=== PATIENT | male | born 1955 | race African-American/Black ===

== ENCOUNTER 2020-01-13 07:21 | Emergency (ER) | payer SELFPAY ==
[~2020-01-13] VITALS: Ht 175.3 cm; Wt 82.0 kg
[2020-01-13] MEDS ORDERED: ACETAMINOPHEN 325MG TABLET PO STA (07:35)
[2020-01-13] MEDS ORDERED: HYDRALAZINE 20MG/ML VIAL IV ONE (08:15)
[2020-01-13 08:45] LABS: BASOPHILS % 0.2 % (0.0-2.0); EOSINOPHILS % 3.5 % (0.0-5.0); HEMATOCRIT. 43.3 % (42.0-52.0); HEMOGLOBIN. 14.7 g/dL (14.0-18.0); MEAN CORPUSCULAR HEMOGLOBIN 30.3 pg (28.0-32.0); MEAN CORPUSCULAR VOLUME 89.2 fL (80.0-94.0); MEAN PLATELET VOLUME 10.1 fl (7.4-10.4); MONOCYTES % 9.8 % (2.0-8.0); NEUTROPHILS % 63.5 % (40.0-76.0); PLATELET 168 x1000/uL (130-400); RED BLOOD CELL COUNT 4.85 mill/uL (4.7-6.1); RED CELL DISTRIBUTION WIDTH 13.7 % (11.6-14.6)
[2020-01-13 08:46] LABS: CHLORIDE 105 mEq/L (98-107)
[2020-01-13 08:47] LABS: PROTHROMBIN TIME 11.3 sec (9.6-11.0)
[2020-01-13 08:59] LABS: CLARITY URINE CLEAR (CLEAR); COLOR URINE YELLOW (YELLOW); KETONES URINE NEGATIVE (NEGATIVE); LEUKOCYTE ESTERASE URINE NEGATIVE (NEGATIVE); NITRITE URINE NEGATIVE (NEGATIVE); OCCULT BLOOD URINE NEGATIVE (NEGATIVE); PROTEIN URINE NEGATIVE (NEGATIVE); SPECIFIC GRAVITY URINE 1.014 (1.005-1.030)
[2020-01-13 09:37] LABS: *BENZODIAZEPINES SCREEN URINE NEGATIVE (NEGATIVE); *COCAINE SCREEN URINE NEGATIVE (NEGATIVE)
[2020-01-13 09:38] LABS: *AMPHETAMINES SCREEN URINE NEGATIVE (NEGATIVE); *BARBITURATES SCREEN URINE NEGATIVE (NEGATIVE); CANNABINOID URINE SCREEN NEGATIVE (NEGATIVE); METHADONE URINE SCREEN NEGATIVE (NEGATIVE); OPIATES URINE SCREEN NEGATIVE (NEGATIVE); PHENCYCLIDINE URINE SCREEN NEGATIVE (NEGATIVE)
[2020-01-13 10:30] VITALS: BP 171/89
== END 2020-01-13 10:31 | disposition home or self-care (01) ==
LOC: ER 08:00
DX: M79.605 Pain in left leg (principal); I10 Essential (primary) hypertension
CPT/HCPCS: 36415; 70450; 71045; 80053; 80305; 80320; 81003; 82962; 85025; 85610; 96374; 99285; J0360; G0480

== ENCOUNTER 2020-04-09 11:15 | Emergency (ER) | payer SELFPAY ==
[~2020-04-09] VITALS: Ht 175.3 cm; Wt 79.0 kg
[2020-04-09] MEDS ORDERED: ONDANSETRON HCL 4MG/2ML INJ IV STA (11:53)
[2020-04-09] MEDS ORDERED: MORPHINE SULFATE 4 MG/ML CPJ (NOT FOR IM USE) IV STA (11:53)
[2020-04-09] MEDS ORDERED: SODIUM CHLORIDE 0.9% 1,000 ML IV ONE (11:53)
[2020-04-09] MEDS ORDERED: CLONIDINE 0.2MG TABLET PO ONE (12:00)
[2020-04-09 12:07] LABS: CLARITY URINE CLEAR (CLEAR); COLOR URINE YELLOW (YELLOW); KETONES URINE NEGATIVE (NEGATIVE); LEUKOCYTE ESTERASE URINE NEGATIVE (NEGATIVE); NITRITE URINE NEGATIVE (NEGATIVE); OCCULT BLOOD URINE NEGATIVE (NEGATIVE); PH URINE 5.5 (4.5-8.0); PROTEIN URINE NEGATIVE (NEGATIVE); SPECIFIC GRAVITY URINE 1.013 (1.005-1.030)
[2020-04-09 12:12] LABS: BASOPHILS % 0.5 % (0.0-2.0); EOSINOPHILS % 8.3 % (0.0-5.0); HEMATOCRIT. 46.5 % (42.0-52.0); HEMOGLOBIN. 15.6 g/dL (14.0-18.0); LYMPHOCYTES % 14.6 % (20.0-50.0); MEAN CORPUSCULAR HEMOGLOBIN 29.9 pg (28.0-32.0); MEAN CORPUSCULAR VOLUME 89.3 fL (80.0-94.0); MONOCYTES % 9.8 % (2.0-8.0); NEUTROPHILS % 66.8 % (40.0-76.0); PLATELET 158 x1000/uL (130-400); RED BLOOD CELL COUNT 5.21 mill/uL (4.7-6.1)
[2020-04-09 12:19] LABS: CHLORIDE 105 mEq/L (98-107)
[2020-04-09 14:50] VITALS: BP 153/100
== END 2020-04-09 14:50 | disposition home or self-care (01) ==
LOC: ER 11:15
DX: R10.11 Right upper quadrant pain (principal); I10 Essential (primary) hypertension
CPT/HCPCS: 36415; 71045; 74176; 80053; 81003; 85025; 93005; 96361; 96374; 96375; 99285; J2270; J2405; J7030

== ENCOUNTER 2021-06-03 14:04 | Emergency (ER) | payer MEDICAID ==
[~2021-06-03] VITALS: Ht 175.3 cm; Wt 79.5 kg
[2021-06-03] MEDS ORDERED: IBUPROFEN 600MG TABLET PO ONE (14:45)
[2021-06-03 15:24] LABS: CLARITY URINE CLEAR (CLEAR); COLOR URINE YELLOW (YELLOW); KETONES URINE 1+ (NEGATIVE); LEUKOCYTE ESTERASE URINE NEGATIVE (NEGATIVE); NITRITE URINE NEGATIVE (NEGATIVE); OCCULT BLOOD URINE NEGATIVE (NEGATIVE); PROTEIN URINE NEGATIVE (NEGATIVE); SPECIFIC GRAVITY URINE 1.029 (1.005-1.030)
[2021-06-03] MEDS ORDERED: IBUP-2029 MT (16:46)
[2021-06-03 16:50] VITALS: BP 148/95
== END 2021-06-03 16:51 | disposition home or self-care (01) ==
LOC: ER 14:04
DX: R51.9 Headache, unspecified (principal); M54.59 Other low back pain; R53.1 Weakness; I10 Essential (primary) hypertension
CPT/HCPCS: 81003; 99284